=== PATIENT | male | born 1970 | race Two or more races ===

== ENCOUNTER 2020-10-04 19:54 | Emergency (ER) | payer MEDICAID ==
[~2020-10-04] VITALS: Ht 170.2 cm; Wt 127.0 kg
[2020-10-04 20:00] VITALS: BP 138/84
--- NOTE | 2020-10-04 20:14 | Emergency Room Report ---
History of Present Illness General Chief Complaint: Male Urogenital Problems Source: Patient Present Illness HPI Disclaimer: Please note that this report is being documented using DRAGON technology. This can lead to erroneous entry secondary to incorrect interpretation by the dictating instrument. HPI: 50-year-old male with a history of obesity, lower extremity edema presents for evaluation of testicular swelling. Patient states he typically has water buildup in his belly and his legs for which he takes Lasix but does not have a formal prescription. He gets medications from relatives. States he takes 1 pill daily and unknown dosage. He reports that his testicles have become swollen and painful over the past 2 weeks. 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 He denies trauma to the testicles. Reports some skin irritation on the left scrotum. Reports mild dysuria. Denies chest pain, shortness of breath, palpitations, abdominal pain, fever, chills, nausea, vomiting. PMH: Obesity, edema, fatty liver PSH: Reviewed Allergies: Reviewed Social Hx: Reviewed Allergies: Coded Allergies: No Known Allergies (Unverified , 10/04/20) COVID-19 Screening Contact w/high risk pt: No Experienced COVID-19 symptoms?: No COVID-19 Testing performed CRIMINAL INTELLIGENCE ANALYST: No Nursing Documentation-PMH Hx Asthma: Yes Review of Systems All Other Systems: negative except mentioned in HPI Physical Exam Vital Signs Date Time Temp Pulse Resp B/P (MAP) Pulse Ox O2 Delivery O2 Flow Rate FiO2 10/04/20 20:02 98.1 82 18 143/83 (103) 96 Room Air General: Awake and alert, no acute distress HEENT: NC/AT. EOMI. Cardiovascular: RRR. S1 and S2 normal. No murmur appreciated Resp: Normal work of breathing. Mild wheezing. No cough. Abdomen: Abdomen is soft, nondistended. Morbidly obese abdomen. Edematous : Uncircumcised male. Edematous foreskin and testicles. Testicles are erythematous slightly tender to palpation bilaterally. Skin: Intact. No abrasions, laceration or rash over the exposed skin. 2+ lower extremity edema MSK: Normal tone and bulk. Moving all extremities. No obvious deformity. Neuro: Awake and alert. Mentating appropriately. Medical Decision Making Diagnostic Impression: Primary Impression: Dependent edema Additional Impression: Hydrocele ER Course 50-year-old male presents for evaluation of fluid retention and edematous testicles. Appears to be consistent with dependent edema and the patient likely has vascular insufficiency or undiagnosed CHF that has been treating himself. Renal function within normal limits. Ultrasound shows hydrocele and dependent edema. The patient now states he has fatty liver as well. Will follow up with his primary doctor tomorrow. Will start on Lasix and gave an IV dose today. Instructed return new or worsening symptoms. Laboratory Tests Test 10/04/20 20:45 Sodium Level 140 MMOL/L (136-145) Potassium Level 4.1 MMOL/L (3.5-5.1) Chloride Level 107 MMOL/L (98-107) Carbon Dioxide Level 31 MMOL/L (21-32) Anion Gap 2 mmol/L (5-15) L Blood Urea Nitrogen 14 mg/dL (7-18) Creatinine 0.8 MG/DL (0.55-1.30) Estimated Glomerular Filtration Rate > 60 mL/min (>60) Glucose Level 109 MG/DL (74-106) H Calcium Level 8.2 MG/DL (8.5-10.1) L Pro-B-Type Natriuretic Peptide Pending CT/MRI/US Diagnostic Results CT/MRI/US Diagnostic Results : Impression IMPRESSION: 1. No intrinsic testicular abnormalities. 2. Flowis demonstrated to both testicles. 3. Large simple right hydrocele. 4. Small to moderate simple left hydrocele. 5. Epididymis is unremarkable bilaterally. Radiologist: Santos Suero MD Electronically Signed: 10/04/20 20:50 Last Vital Signs Date Time Temp Pulse Resp B/P (MAP) Pulse Ox O2 Delivery O2 Flow Rate FiO2 10/04/20 20:02 98.1 82 18 143/83 (103) 96 Room Air Disposition: HOME, SELF-CARE Condition: Stable Scripts Furosemide* (LASIX*) 40 Mg Tablet 40 MG ORAL DAILY, #20 TAB Prov: Eliseo Montero MD 10/04/20 Elisoe Montero MD Oct 04, 2020 20:14
--- NOTE | 2020-10-04 20:20 | NUR ---
ED Nurse Note: Pt walked into the ED with c/o RT swollen Testicle onset 3 days. PT stated he was shaving and cut his skin in the testicles and stated minimal blood; is worried it is infected d/t swelling and pain. Pt stated pain is affecting his breathing. Pt stated painful urination
--- NOTE | 2020-10-04 20:38 | NUR ---
ED Nurse Note: ENDY done at bedside
--- NOTE | 2020-10-04 20:49 | NUR ---
ED Nurse Note: Blood sent to lab
--- NOTE | 2020-10-04 20:51 | Diagnostic Imaging Report ---
EXAM: US Scrotum CLINICAL HISTORY: PAIN TECHNIQUE: Real-time ultrasound of the scrotum with color Doppler and image documentation. COMPARISON: No previous studies. FINDINGS: Right testicle: Right testicle measures 3.6 x 2.3 x 2.4 cm. No intrinsic testicular abnormalities per Flow is demonstrated to both testicles. No torsion. Left testicle: Left testicle measures 3.6 x 2.4 x 1.9 cm. Epididymides: Right epididymis is unremarkable. Left epididymis is unremarkable. Scrotum: Large simple right hydrocele. Small to moderate simple left hydrocele appeared IMPRESSION: 1. No intrinsic testicular abnormalities. 2. Flow is demonstrated to both testicles. 3. Large simple right hydrocele. 4. Small to moderate simple left hydrocele. 5. Epididymis is unremarkable bilaterally.
[2020-10-04 21:08] LABS: ANION GAP 2 mmol/L (5-15); BLOOD UREA NITROGEN 14 mg/dL (7-18); CALCIUM 8.2 MG/DL (8.5-10.1); CARBON DIOXIDE 31 MMOL/L (21-32); CHLORIDE 107 MMOL/L (98-107); CREATININE 0.8 MG/DL (0.55-1.30); POTASSIUM 4.1 MMOL/L (3.5-5.1); SODIUM 140 MMOL/L (136-145)
[2020-10-04] MEDS ORDERED: FUROSEMIDE40 MG ORAL (21:14)
--- NOTE | 2020-10-04 21:30 | NUR ---
ER DISCHARGE NOTE: Patient is cleared to be discharged per ERMD, pt is aox4, on room air, with stable vital signs. pt was given dc and prescription instructions, pt was able to verbalize understanding, pt id band and iv site removed without complications. pt is able to ambulate with steady gait. pt took all belongings.
[2020-10-04 21:59] VITALS: BP 143/83
== END 2020-10-04 21:30 | disposition home or self-care (01) ==
LOC: EMR 20:53
DX: R60.0 Localized edema (principal); N43.3 Hydrocele, unspecified; J45.909 Unspecified asthma, uncomplicated; E66.9 Obesity, unspecified; Z68.41 Body mass index [BMI] 40.0-44.9, adult
CPT/HCPCS: 36415; 76870; 80048; 83880; 96374; J1940; Z7502; 99284